=== PATIENT | female | born 1975 | race Caucasian/White ===

== ENCOUNTER → 2019-01-15 | Day surgery (SDC) | payer OTHER, SELFPAY ==
[2019-01-14 13:35] LABS: BASOPHILS # (AUTO) 0.1 (0.0-0.1); BASOPHILS % 0.5 % (0.0-1.0); EOSINOPHILS # (AUTO) 0.4 (0.0-0.4); EOSINOPHILS % 3.6 % (0.0-6.0); HEMATOCRIT 44.3 % (34.2-44.1); HEMOGLOBIN 14.1 g/dL (12.0-16.0); LYMPHOCYTES # (AUTO) 3.2 (1.0-3.2); LYMPHOCYTES % 26.6 % (18.0-39.1); MEAN CORPUSCULAR HGB CONC 31.8 g/dL (31-35); MEAN CORPUSCULAR VOLUME 87.9 fL (81-99); MONOCYTES # (AUTO) 0.9 (0.2-0.8); MONOCYTES % 7.6 % (4.4-11.3); NEUTROPHILS # (AUTO) 7.4 (2.1-6.9); NEUTROPHILS % 61.3 % (38.7-80.0); PLATELET COUNT 361 x10e3/uL (140-360); RED BLOOD COUNT 5.04 x10e6/uL (3.6-5.1); RED CELL DISTRIBUTION WIDTH 13.2 % (11.7-14.4)
[2019-01-14 13:46] LABS: INR 0.95; PROTHROMBIN TIME 13.2 seconds (11.9-14.5)
[2019-01-14 13:47] LABS: PARTIAL THROMBOPLASTIN TIME 29.2 seconds (23.8-35.5)
[2019-01-14 13:53] LABS: ALANINE AMINOTRANSFERASE 24 IU/L (0-55); ALBUMIN 3.6 g/dL (3.5-5.0); ALKALINE PHOSPHATASE 49 IU/L (40-150); ANION GAP 12.2 mmol/L (8-16); BLOOD UREA NITROGEN 16 mg/dL (7-26); BUN/CREATININE RATIO 20 (6-25); CALCIUM 9.8 mg/dL (8.4-10.2); CARBON DIOXIDE 28 mmol/L (22-29); CHLORIDE 102 mmol/L (98-107); CREATININE, SERUM 0.79 mg/dL (0.57-1.11); EST GLOMERULAR FILTRATION RATE > 60 ML/MIN (60-); GLUCOSE 96 mg/dL (74-118); POTASSIUM 4.2 mmol/L (3.5-5.1); SODIUM 138 mmol/L (136-145)
[~2019-01-15] MED LIST: ACETAMINOPHEN 1000 MG/100 ML IV ONE; AUGMENTIN 875 MG; BACITRACIN 50,000 UNIT VIAL ONE; BUPIVACAINE 0.25% 30ML SDV INJ ONE; CEFAZOLIN SOD 1 GM/NS 50ML 50 ML IV ONE; DEXAMETHASONE SOD PHOS INJ 4 MG/ML VIAL ONE; EPINEPHRINE HCL 1:1000 1ML 1 MG/ML AMP ONE; FENTANYL CITRATE/PF 100MCG/2 ML INJ ONE; HYDROCODONE/APAP 10MG-325MG TAB ONE; KETOROLAC TROMETHAMINE 30 MG/ML VIAL ONE; LIDOCAINE 2%/ EPINEPHRINE 20ML MDV ONE; LIDOCAINE HCL 1% LOCAL INJ 20 ML VIAL ONE; LIDOCAINE HCL 2% LOCAL INJ 5 ML SDV VIAL INJ ONE; METHOCARBAMOL750 MG PO; MIDAZOLAM HCL 2 MG/2 ML VIAL ONE; ONDANSETRON HCL INJ 2MG/ML 2ML 2 MG/ML VIAL ONE; PROPOFOL IV EMULSION 10 MG/ML 20 ML VIAL ONE; ROCURONIUM BROMIDE 10 MG/ML 5ML VIAL ONE; SEVOFLURANE INHAL SOLN 250 ML PEN BTL ONE; SUCCINYLCHOLINE 200 MG/10 ML SYR ONE; VALACYCLOVIR500 MG PO
[2019-01-15 17:00] VITALS: BP 148/88
--- NOTE | 2019-01-19 02:15 | Operative Report ---
DATE OF PROCEDURE: 01/15/2019 SURGEON: Sujata Esqueda MD PREOPERATIVE DIAGNOSES: 1. Bilateral old intact silicone gel breast implants, submuscular. 2. Bilateral breast ptosis. 3. Bilateral old upper and lower lip PermaLip implants. 4. Lipodystrophy of submental area. POSTOPERATIVE DIAGNOSES: 1. Bilateral old intact silicone gel breast implants, submuscular. 2. Bilateral breast ptosis. 3. Bilateral old upper and lower lip PermaLip implants. 4. Lipodystrophy of submental area. PROCEDURES PERFORMED: 1. Removal of bilateral old intact silicone gel breast implants. 2. Bilateral mastopexy. 3. Suction-assisted lipectomy of submental area. Total tumescent fluid injected was 150 mL. Total aspirate out was 100 mL. 4. Removal of upper and lower silicone PermaLip lip implants. 5. Fat transfer to upper and lower lips, total of 7 mL of fat transferred to both lips. ANESTHESIA: General endotracheal. INDICATIONS FOR SURGERY: This is a 43-year-old female, who has had bilateral breast augmentation with silicone gel breast implants and breast lifts in the past as well as placement of PermaLip silicone implants in her upper and lower lips. The patient desires removal of bilateral old intact silicone gel breast implants, bilateral breast mastopexies, suction-assisted lipectomy of submental area, removal of upper and lower lip implants, and fat transfer from abdomen to her upper and lower lips. Risks, alternatives, and possible complications of the above procedure were explained to the patient. These include, but are not limited to bleeding, infection, scarring, recurrence of breast ptosis, breast asymmetry, lip asymmetry, loss of nipple sensation, nipple or skin flap necrosis, wound dehiscence, skin irregularity, recurrence of lipodystrophy, resorption of fat, pulmonary embolism, deep venous thrombosis, unsatisfactory aesthetic results, and possible need for further surgery. The patient had an opportunity to ask questions and all of her questions answered and agreed to proceed with the proposed procedure. PROCEDURE IN DETAIL: The patient was marked in the preoperative holding area. She was then taken to the operating room and placed supine on the operating table. After adequate general anesthesia, a Barajas was placed and the patient's face, neck, abdomen, and bilateral breasts were prepped and draped in the usual surgical fashion. The preoperative markings on the breasts were rechecked for symmetry. The nipple areolar complex was marked with TapInfluence cutter at 45 mm of diameter. A vertical incision was then made below the nipple areolar complex along the previous mastopexy incision with #15 blade. Tissue was dissected down to the breast capsule with the help of the Bovie. The old silicone gel implant was removed and was 650 mL [place] Smooth Round High Profile silicone gel. The implants on both sides were intact. After removing both implants, the breast pockets were irrigated with normal saline with antibiotic solution. The lateral breast pocket was then closed with several rows of interrupted buried 0 Ethibond sutures. After closing the lateral breast pockets, the excess skin was deepithelialized with the help of #15 blade and with the Bovie. The nipple areolar complex was then suture in its near superior location with interrupted 4-0 Vicryl sutures. The medial and lateral skin flaps were advanced to each other and sutured to each other with interrupted 3-0 Vicryl sutures. Excess skin was removed along the inframammary incision with the help of #10 blade and with the Bovie. The inframammary incision was closed with interrupted 3-0 Vicryl sutures Insorb stapler in subcutaneous tissue in a running subcuticular 3-0 Monoderm Quill suture. A running subcuticular 3-0 Monoderm Quill suture was also placed along the vertical limb and around the nipple areolar complex. Similar procedure was first performed on the opposite breast. After completion of the bilateral mastopexies, attention was turned to the patient's submental area. Through a small incision in the submental crease, 150 mL of tumescent fluid was injected in the submental area. After adequate time was given for the tumescent to act, suction-assisted lipectomy was undertaken with #2 flat cannula in the submental area. Approximately 100 mL of aspirate was removed from the submental area. The small incision in the submental area was closed with a single stitch of 6-0 chromic. Attention was then turned to the patient's lips. The patient desired removal of the upper and lower lips silicone PermaLip implants. 2% lidocaine with epinephrine was injected on each side of the corner of the mouth as well as in each lip. A total of 10 mL was injected in the upper and lower lip as well as the oral commissure. After adequate time was given for the local to act, a small incision was made in each oral commissure. With #15 blade, the pocket was carefully dissected until each of the PermaLip lip implants could be reached with hemostat and gently removed. After removal of both the upper and lower lip implants, the oral commissure was closed with a [id number] 4-0 chromic suture. Attention was then turned to the patient's abdomen. This was the donor site for the fat transfer for the upper and lower lip. Approximately 10 mL of 2% lidocaine with epinephrine mixed with 30 mL of normal saline were injected in the patient's abdomen with a 25-gauge needle. After adequate time was given for the local to act on the abdomen, a small incision was made in the abdomen with #18-gauge needle and the hand-held liposuction cannula and a #10 mL syringe was used to harvest approximately 20 mL of fat from the patient's abdomen. The 20 mL of fat were purified and then transferred into 3 mL syringes. A total of 7 mL of purified fat was obtained. The purified fat was then injected into each lip, 3.5 mL in the upper and 3.5 mL in the lower lip using a blunt tip 19-gauge cannula and using the oral commissures too injected the fat in to lips, but avoid the previous pocket, where the lip implant has been. After completion of the fat transfer, neosporin was placed on each oral commissure. Both breasts were covered with Steri-Strips around each nipple areolar complex. Both nipples and all skin flaps on the breasts appeared viable. The incisions were covered with Xeroform, ABD pads, and the patient was wrapped with 2 large 6-inch CHAR wraps. The donor site for the fat transfer of the abdomen was covered with an ABD pad as well. The patient tolerated the procedure well. There were no immediate complication. The needle and instrument count was correct at the end of the case. The Barajas was removed at the end of the case and she was transferred, extubated to the recovery room. MD KIMBERLEE Sears/MODL /[id number] ANAHY
== END | disposition home or self-care (01) ==
LOC: OR 08:29
PROVIDERS: ATTEND Plastic Surgery
DX: N64.81 Ptosis of breast (principal); E88.1 Lipodystrophy, not elsewhere classified; Z45.812 Encounter for adjustment or removal of left breast implant; Z45.811 Encounter for adjustment or removal of right breast implant; Z45.89 Encounter for adjustment and management of other implanted devices; Z91.048 Other nonmedicinal substance allergy status; Z01.810 Encounter for preprocedural cardiovascular examination; Z01.812 Encounter for preprocedural laboratory examination
CPT/HCPCS: 19316; 20926; 36415; 40799; 80053; 84702; 85025; 85610; 85730; 93005; J0131; J0171; J0690; J1100; J1885; J2001 ×3; J2250; J2405; J2704; J3010